=== PATIENT | female | born 1985 ===

== ENCOUNTER 2021-09-05 17:31 | Emergency (ER) | payer OTHER ==
[~2021-09-05] VITALS: Ht 170.2 cm; Wt 142.9 kg
[~2021-09-05 17:31] MED LIST: FOLIC ACID1 MG PO; MEFORMIN PO; PREDNISONE20 MG PO; PRENATAL CAPLE1 EACH PO; ZANTAC300 MG PO
== END 2021-09-05 19:55 | disposition home or self-care (01) ==
LOC: ER 17:31
DX: T07.XXXA Unspecified multiple injuries, initial encounter (principal); V49.9XXA Car occupant (driver) (passenger) injured in unspecified traffic accident, initial encounter; Y93.9 Activity, unspecified; Y92.488 Other paved roadways as the place of occurrence of the external cause; Y99.9 Unspecified external cause status; Z88.8 Allergy status to other drugs, medicaments and biological substances